=== PATIENT | male | born 1955 | race Caucasian/White ===

== ENCOUNTER 2020-04-10 09:06 | Day surgery (SDC) | payer MEDICARE, SELFPAY ==
--- NOTE | 2020-04-08 14:06 | P.CONAN_ITS ---
Documented by User: Trudi Thomas 04/08/20 14:08 HPI - Anesthesia Eval Consult details Narrative: 64yo M for EGD and colonoscopy: barretts, GERD, screening [facility] Past Medical History Medical History Barretts esophagus GERD (gastroesophageal reflux disease) Hiatal hernia Surgical History Surgical History History of esophagogastroduodenoscopy (EGD) Hx of colonoscopy Social History Social History Smoking Status: Light tobacco smoker Use of substances other than those prescribed or required for medical reasons: Yes Advance Directives: No Advance Directives Information Provided: Yes Advance Directives on File: No Meds Allergies Allergy/AdvReac Type Severity Reaction Status Date / Time latex [Latex] Allergy Mild RASH Unverified 03/12/20 16:51 Home Medications Medication Instructions Recorded Confirmed Type pantoprazole 1 tab PO DAILY 04/07/20 04/07/20 History Exam Exam Date and Time: April 08, 2020 1406 Pertinent Lab Results Pertinent Lab Results: Laboratory Tests 01/03/20 01/03/20 10:47 10:47 WBC 5.1 Hgb 13.0 L Hct 38.9 L Plt Count 219 D Sodium 140 Potassium 4.4 Chloride 104 BUN 11 Creatinine 1.17 Assessment and Plan Assessment Anesthesia Assessment: Chart Reviewed Documented by User: Maurisio Brewer 04/10/20 09:26 [facility] Past Medical History Medical History Barretts esophagus GERD (gastroesophageal reflux disease) Hiatal hernia Surgical History Surgical History History of esophagogastroduodenoscopy (EGD) Hx of colonoscopy Social History Social History Smoking Status: Light tobacco smoker Use of substances other than those prescribed or required for medical reasons: Yes Advance Directives: No Advance Directives Information Provided: Yes Advance Directives on File: No Meds Allergies Allergy/AdvReac Type Severity Reaction Status Date / Time latex [Latex] Allergy Mild RASH Unverified 03/12/20 16:51 Home Medications Medication Instructions Recorded Confirmed Type pantoprazole 1 tab PO DAILY 04/07/20 04/07/20 History Exam Airway Mallampati Class: II TM Dist: >3cm Neck ROM: Full Loose/Missing/Broken Teeth: No Heart: [id number] Lungs: cta b/l Assessment and Plan Assessment Anesthesia Assessment: Anesthesia Plan Discussed, PAT Visit and Chart Reviewed Final Anesthetic Review NPO: Yes ASA Class: II Final Preanesthetic Review: No Changes in Pt Med Stat, Meds/Allgs Chart Reviewed, Consent Obtained/Reviewed and Anes Risks/Benef Reviewed Patient Risk: Low Procedure Risk: Low Anesthetic Plan Anesthetic Plan: MAC: Disposition: Standard PACU
[2020-04-09 09:48] VITALS: BMI 21.6
[2020-04-10] VITALS (7 sets, daily range): BP systolic 113–187; BP diastolic 61–101; PULSE 60–78; RESP 14–21; TEMP 36.5–36.8; O2SAT 93–100
--- NOTE | 2020-04-10 10:47 | PM.OP ---
Brief Operative Note Date of procedure: 04/10/20 Pre-op diagnosis: GERD, Haque's, Screening Post-op diagnosis: other (Hiatal hernia, Gastritis, Diverticulosis, Internal hemorrhoidds) Procedure: EGD with biopsy, Colonoscopy to cecum and TI Surgeon: Bandar Fajardo Anesthesia: MAC Pathology: other (A. EG Junction at 36cm B. Gastric antrum) Condition: stable Disposition: PACU
[2020-04-10] MEDS: ondansetron HCL 4 MG/2 ML VIAL IVPUSH ×2 (11:28→12:56)
--- NOTE | 2020-04-10 11:35 | OP_ITS ---
SURGEON: Bandar Fajardo MD INDICATIONS: The patient presents for evaluation of gastroesophageal reflux, previous history of Haque's esophagus, and colorectal cancer screening. Full consent has been obtained from him for this, including risks of bleeding and perforation. PREOPERATIVE DIAGNOSIS: POSTOPERATIVE DIAGNOSIS: PROCEDURE PERFORMED: Esophagogastroduodenoscopy with biopsies, and colonoscopy to cecum and terminal ileum. ESTIMATED BLOOD LOSS: COMPLICATIONS: ANESTHESIA: Monitored anesthesia care. ASSISTANTS: SPECIMENS: PREOPERATIVE DIAGNOSES: Gastroesophageal reflux, history of Haque's esophagus, colorectal cancer screening. POSTOPERATIVE DIAGNOSES: Gastroesophageal reflux, history of Haque's esophagus, colorectal cancer screening, hiatal hernia, mild gastritis, diverticulosis, and internal hemorrhoids. DESCRIPTION OF PROCEDURE: The patient was placed in the left lateral decubitus position. The Olympus video gastroscope was passed in the posterior oropharynx and upper esophagus under direct vision. The scope was passed slowly into the distal esophagus. The gastroesophageal junction appeared at 36 cm. There was a very minimal irregularity, but no evidence of esophagitis nor any definitive evidence of Haque's mucosa. The scope was entered into the stomach. There was a small to moderate-sized hiatal hernia. The scope was advanced to pylorus and duodenum cannulated the descending portion. The duodenum including the bulb appeared normal without mass or ulceration. The scope was withdrawn back in the stomach. The gastric antrum had some mild changes of erythema and edema, but no erosions or ulceration. There was good peristalsis. The scope was retroflexed visualizing the proximal stomach carefully, which appeared normal, without any sign of mass or ulceration. The scope was straightened. Biopsies were obtained from the gastric antrum. Scope was withdrawn back into the esophagus. Biopsies were obtained at the EG junction at 36 cm. Proximal to this, the esophageal mucosa appeared normal. The scope was withdrawn from the patient. He was turned around for colonoscopy. The digital rectal exam revealed no abnormalities. The Olympus video pediatric colonoscope was entered into the rectum and advanced easily to the cecum. Once in the cecum, I did identify normal-appearing cecal pouch with appendiceal orifice and a normal-appearing ileocecal valve. The terminal ileum was cannulated and appeared normal. The scope was withdrawn back in the colon. The entire cecum and ileocecal valve appeared normal. The scope was slowly withdrawn assessing all mucosal surfaces carefully. Preparation was excellent. I did not visualize any sign of polyps, colitis, nor angiodysplasia. There was a mild amount of sigmoid diverticulosis. In the rectum, scope was retroflexed visualizing internal hemorrhoids, but no other pathology. The rectal mucosa appeared normal. The scope was straightened out and withdrawn from the patient. He tolerated both procedures well and was returned to the recovery area in stable condition. IMPRESSION: 1. Hiatal hernia, gastroesophageal reflux. 2. Mild gastritis. 3. Diverticulosis. 4. Internal hemorrhoids. PLAN: The results of the biopsy will be checked. I would recommend a repeat colonoscopy in 10 years for further screening. He will continue his pantoprazole for reflux. Given the very minimal findings on the upper endoscopy, I doubt he will need any further upper endoscopies for surveillance in the future. He will otherwise see me on a p.r.n. basis. MD ROSALEE Curiel/FRANCO / [id number]
--- NOTE | 2020-04-10 12:00 | ECG_ITS ---
Test Reason : ekg changes Blood Pressure : / mmHG Vent. Rate : 072 BPM Atrial Rate : 076 BPM P-R Int : 000 ms QRS Dur : 092 ms QT Int : 430 ms P-R-T Axes : 000 098 027 degrees QTc Int : 470 ms Poor data quality, interpretation may be adversely affected Atrial fibrillation Rightward axis Cannot rule out Inferior infarct , new Anterolateral injury pattern ACUTE MT / STEMI Abnormal ECG When compared with ECG of 03-DEC-2019 17:20, Atrial fibrillation has replaced Sinus rhythm Acute Inferior infarct is now Present Referred By: Maurisio Brewer Electronically Signed By:
[2020-04-10 12:05] LABS: Glucose, Whole Blood 105 mg/dL (60-115)
[2020-04-10 13:24] LABS: Glucose, Whole Blood 140 mg/dL (60-115)
== END 2020-04-10 12:50 | disposition home or self-care (01) ==
PROVIDERS: PCP Internal Medicine; Visit Provider Internal Medicine
PROC: (CPT 45378; principal; 2020-04-10 10:10)
DX: Z12.11 Encounter for screening for malignant neoplasm of colon (principal); K57.30 Diverticulosis of large intestine without perforation or abscess without bleeding; K64.8 Other hemorrhoids; K22.70 Barrett's esophagus without dysplasia; K29.70 Gastritis, unspecified, without bleeding; K21.00 Gastro-esophageal reflux disease with esophagitis, without bleeding; K44.9 Diaphragmatic hernia without obstruction or gangrene; Z79.899 Other long term (current) drug therapy; F12.90 Cannabis use, unspecified, uncomplicated; Z91.040 Latex allergy status
CPT/HCPCS: 45378; 43239; 74018; 82947; 88305; 88342; 93005; 96361; 96374; 96375; 99285; J1200; J2060; J2405; J2765

== ENCOUNTER 2020-04-10 13:26 | Emergency (ER) | payer MEDICARE, SELFPAY ==
[2020-04-10 13:32] VITALS: BP 153/70; PULSE 65; RESP 18; TEMP 36.7; O2SAT 100; BMI 21.6
--- NOTE | 2020-04-10 13:46 | ED_ITS ---
HPI - Nausea/Vomiting/Diarrhea General Chief complaint: Nausea/Vomiting/Diarrhea Stated complaint: Vomiting Time Seen by Provider: 04/10/20 13:40 Source: patient Mode of arrival: ambulatory Limitations: no limitations History of Present Illness HPI Narrative: 64-year-old male with a past medical history of GERD, marijuana use here with vomiting from PACU. The patient had a scheduled endoscopy and colonoscopy by Dr Fajardo here at [facility] and received propofol. Postprocedure he had vomiting and received 3 L of normal saline, IV Phenergan 12.5mg, IV zofran 8mg with continued vomiting. Denies abdominal pain, di arrhea. Reviewed OR note. uneventful procedure. MD elicited complaint: nausea and vomiting Onset (ago): hour(s) Associated nausea: Yes Associated abdominal pain: No Location of pain: none Pain consistency: constant Severity: mild Exacerbating factors: none Relieving factors: none Associated symptoms: denies other symptoms Related Data Home Medications Medication Instructions Recorded Confirmed pantoprazole 1 tab PO DAILY 04/07/20 04/07/20 Previous Rx's Medication Instructions Recorded ondansetron HCl [Zofran] 4 mg PO Q8H PRN #8 tab 04/10/20 Allergies Allergy/AdvReac Type Severity Reaction Status Date / Time latex [Latex] Allergy Mild RASH Verified 04/10/20 13:31 Review of Systems Review of Systems: Yes all other systems are reviewed and are negative Constitutional: Constitutional: Reports no additional constitutional complaints, Denies body ache(s), Denies chills, Denies fever(s), Denies headache(s) and Denies weakness Eyes: Eyes: Reports no additional eye complaints and Denies change in vision ENT: Reports system reviewed and no additional complaints, except as documented, Denies dizziness, Denies headache(s), Denies nasal congestion, Denies nasal discharge and Denies neck pain Cardiovascular: Cardiovascular: Reports no additional cardiovascular complaints, Denies chest pain, Denies leg edema and Denies dyspnea Respiratory: Respiratory: Reports no additional respiratory complaints, Denies cough and Denies dyspnea Gastrointestinal: Gastrointestinal: Denies abdominal pain, Denies diarrhea, Reports nausea and Reports vomiting Genitourinary: Genitourinary: Denies urinary incontinence Musculoskeletal: Musculoskeletal: Reports no additional musculoskeletal complaints, Denies back pain, Denies arthralgias, Denies joint swelling, Denies neck pain, Denies numbness and Denies tingling Integumentary/Breasts: Skin/Breast: Reports system reviewed and no additional complaints, except as docu and Denies rash Neurologic: Reports system reviewed and no additional complaints, except as documented, Denies Abnormal speech present, Denies dizziness, Denies headache(s), Denies numbness, Denies tingling and Denies weakness PMFSH Past Medical History Source: old records reviewed, obtained from family and nursing notes reviewed Medical History Barretts esophagus GERD (gastroesophageal reflux disease) Hiatal hernia Surgical History History of esophagogastroduodenoscopy (EGD) Hx of colonoscopy Social History Social History Alcohol intake: never Smoking Status: Light tobacco smoker Smoked in Last 30 Days: Yes Use of substances other than those prescribed or required for medical reasons: No Advance Directives: No Advance Directives Information Provided: Yes Physical Exam Vital Signs: Vital Signs: Vital Signs Temp Pulse Resp BP Pulse Ox 04/10/20 16:59 98 04/10/20 15:10 97.6 F 79 18 146/74 H 97 04/10/20 14:03 55 18 156/75 H 94 04/10/20 13:32 98.0 F 65 18 153/70 H 100 Body Mass Index 21.6 Const: Other: Very anxious, diaphoretic, actively dry heaving General: cooperative Orientation/consciousness: patient oriented x3 Limitations: no limitations HENMT: Head: Yes normal to inspection Ears: hearing grossly normal bilaterally General nose exam: Normal external nose present Face and sinus: Yes normal facial exam Mouth: Normal oral and palatal mucosa present Throat: Yes posterior oropharynx normal Eyes: General: appearance normal, both eyes and all related structures Pupils: Equal, round and reactive pupils present Neck: Neck: Yes normal visual inspection Chest: Chest palpation & inspection: normal inspection of the chest Resp: Effort & Inspection: normal respiratory effort Auscultation: clear to auscultation bilaterally Cardio: Rate: regular rate Rhythm: regular rhythm Peripheral pulses: Peripheral pulses 2+ throughout GI: Other: no abdominal pain. Abdomen is soft Inspection: Yes normal to inspection Palpation (GI): Soft to palpation and nontender Auscultation: normal bowel sounds Back/Spine/Pelvis: Thoracic/Lumbar Spine: thoracic and lumbar spine normal to inspection Skin: General skin exam: no rashes or lesions noted Neuro: General: patient oriented x3, no focal motor deficits and normal sensation to monofilament Cranial nerves: Yes Equal, round and reactive pupils present Cognition (Neuro): normal cognition Speech: No Abnormal speech present Gait exam (Neuro): Normal gait present Motor exam (neuro): 5/5 motor strength present throughout Extrem: General: Yes normal to inspection Course Course Course Narrative: patient here with intractable vomiting after a outpatient procedure today in which he received propofo and several rounds of antiemeticl. On exam he is very anxious, diaphoretic, actively dry heaving with no focal abdominal pain. Will give antiemetic check KUB. Patient may need admission he continues to vomit. 1520-Continued vomiting despite 3 antiemetics here, will give haldol IV and discuss with hospitalist is no improvement. 1615- patient called me to the room and wants to be discharged home. He walked to the bathroom with a steady gait. He is able to tolerate fluids with no vomiting. Has a ride to pick him up. Reviewed worrisome signs and symptoms of when to return to the emergency department. Comfortable discharge home. MDM - Nausea/Vomiting/Diarrhea MDM Narrative Medical decision making narrative: Intractable vomiting after receiving anesthesia today. Abdomen is soft and nontender. KUB unremarkable. Less likely perf or intrabdominal pathology with soft, nontender abdomen, stable vital signs. Imaging Data Abdominal x-ray: Attestation: I personally reviewed and interpreted this imaging study as follows: My impression: unremarkable Radiologist's impression: EXAMINATION: XR ABDOMEN KUB CLINICAL INDICATION: Post procedure vomiting. COMPARISON: January 08, 2019 TECHNIQUE: AP view of the abdomen. FINDINGS: There is a gas collection measuring approximately 8 cm in diameter within the mid right abdomen which may represent a distended loop of bowel folded back on itself. No other dilated loops of bowel are appreciated. No secondary signs of free abdominal air seen. Psoas margins are intact. There is degenerative change of the lumbar spine L4-S1 prominent vascular calcifications are present. IMPRESSION: No definite evidence of free intra-abdominal air. Region of circumscribed gas within the mid right abdomen likely related to distended loop of bowel folded on itself. Discharge Plan Discharge Clinical Impression: Drug-induced nausea and vomiting Patient Disposition: Home, Self-Care Instructions: Acute Nausea and Vomiting (ED) Prescriptions: New ondansetron HCl [Zofran] 4 mg tablet 4 mg PO Q8H PRN (Reason: nausea and vomiting) Qty: 8 RF: 0 No Action pantoprazole 40 mg tablet,delayed release (DR/EC) 1 tab PO DAILY RF: 0 Referrals: Physician,Unknown [Primary Care Provider] - 2 days
[2020-04-10] MEDS: 0.9 % Sodium Chloride 500 ML 100 ML IV (13:50)
[2020-04-10] MEDS: LORazepam 2 MG/ML VIAL 1 MG IVPUSH (13:52)
[2020-04-10] MEDS: diphenhydrAMINE HCL 50 MG/ML VIAL 25 MG IVPUSH (13:53)
[2020-04-10] MEDS: Metoclopramide HCl 10 MG/2 ML VIAL IVPUSH (13:53)
--- NOTE | 2020-04-10 14:02 | PC.NURSE ---
stopped vomiting. no longer diaphoretic. is somewhat difficult to arouse now but only needs light touch. pupils 4mm, reactive. able to follow commands once aroused. vss
[2020-04-10 14:03] VITALS: BP 156/75; PULSE 55; RESP 18; O2SAT 94
--- NOTE | 2020-04-10 14:34 | PC.NURSE ---
son, annalee , is ride home. [phone] update given
[2020-04-10 15:10] VITALS: BP 146/74; PULSE 79; RESP 18; TEMP 36.4; O2SAT 97
[2020-04-10] MEDS: Haloperidol Lactate 5 MG/ML VIAL 2 MG IVPUSH (15:18)
--- NOTE | 2020-04-10 15:18 | PC.NURSE ---
vomited again x 2. cleansed. repositioned. aware of plan for admission. medicated with haldol for persistent vomiting.
--- NOTE | 2020-04-10 16:17 | PC.NURSE ---
This patient is refusing all labs, vitals and any sort of care. He is also refusing to wear his mask. He would like to leave AMA. provider Jocelyn MAXWELL aware. RN also aware.
[2020-04-10 16:59] VITALS: O2SAT 98
--- NOTE | 2020-04-10 17:03 | PC.NURSE ---
pt was ambulatrot rto bathroom, mostly steady on feet. insists on going home. hasn't vomited in a while. was able to dress independently.. son aware and will come warehouse picker patient
== END 2020-04-10 17:41 | disposition home or self-care (01) ==
PROVIDERS: Emergency Provider Emergency Medicine
DX: F12.188 Cannabis abuse with other cannabis-induced disorder (principal); R11.2 Nausea with vomiting, unspecified; F17.200 Nicotine dependence, unspecified, uncomplicated; Z71.6 Tobacco abuse counseling; Z79.899 Other long term (current) drug therapy
CPT/HCPCS: 74018; 82947; 88305; 88342; 93005; 96361; 96374; 96375; 99285; J1200; J2060; J2405; J2765

== ENCOUNTER 2020-06-19 09:02 | Emergency (ER) | payer MEDICARE, SELFPAY ==
[2020-06-19 09:21] VITALS: BP 144/74; PULSE 68; RESP 22; TEMP 36.3; O2SAT 99; BMI 23.3
--- NOTE | 2020-06-19 09:48 | ED_ITS ---
HPI - Nausea/Vomiting/Diarrhea General Chief complaint: Abdominal Pain Stated complaint: abd pain Time Seen by Provider: 06/19/20 11:41 Source: patient Mode of arrival: ambulatory Limitations: no limitations History of Present Illness HPI Narrative: Patient presents to ED for severe nausea and vomiting since 10/23 this morning. Patient denies any abdominal pain. ALso patient denies any chest pain or shortness of breath. Patient states this has happened before in the past when he smokes pot. Patient admits to smoking pot last night. Associated nausea: Yes Related Data Home Medications Medication Instructions Recorded Confirmed pantoprazole 1 tab PO DAILY 04/07/20 04/07/20 Previous Rx's Medication Instructions Recorded ondansetron HCl [Zofran] 4 mg PO Q8H PRN #8 tab 04/10/20 Allergies Allergy/AdvReac Type Severity Reaction Status Date / Time latex [Latex] Allergy Mild RASH Verified 04/10/20 13:31 Review of Systems Review of Systems: Yes all other systems are reviewed and are negative Constitutional: Constitutional: Reports as per HPI and Reports no additional constitutional complaints Eyes: Eyes: Reports as per HPI and Reports no additional eye complaints ENT: Reports system reviewed and no additional complaints, except as documented and Reports as per HPI Cardiovascular: Cardiovascular: Reports as per HPI and Reports no additional cardiovascular complaints Respiratory: Respiratory: Reports as per HPI and Reports no additional respiratory complaints Gastrointestinal: Gastrointestinal: Reports as per HPI, Reports no additional gastrointestinal complaints, Denies abdominal pain, Reports nausea and Reports vomiting Genitourinary: Genitourinary: Reports no additional male genitourinary compla ints and Reports as per HPI Musculoskeletal: Musculoskeletal: Reports no additional musculoskeletal complaints and Reports as per HPI Neurologic: Reports system reviewed and no additional complaints, except as documented and Reports as per HPI Psychiatric: Psychiatric: Reports no additional psychiatric complaints and Reports as per HPI Endocrine: Endocrine: Reports no additional endocrine complaints and Reports as per HPI PMFSH Past Medical History Medical History Barretts esophagus GERD (gastroesophageal reflux disease) Hiatal hernia Surgical History History of esophagogastroduodenoscopy (EGD) Hx of colonoscopy Social History Social History Alcohol intake: unknown Smoking Status: Unknown if ever smoked Use of substances other than those prescribed or required for medical reasons: Yes Substance Use Type: Marijuana Advance Directives: No Advance Directives Information Provided: Yes Physical Exam Vital Signs: Vital Signs: Last Vital Signs Temp 98.0 F 06/19/20 13:00 Pulse 68 06/19/20 13:00 Resp 18 06/19/20 13:00 BP 172/87 H 06/19/20 13:00 Pulse Ox 98 06/19/20 13:00 Body Mass Index 23.3 Const: General: cooperative, healthy appearing, comfortable, no acute distress, well developed, alert and awake Orientation/consciousness: patient oriented x3 HENMT: Head: Yes normal to inspection, Yes No palpable skull fracture present and Yes normocephalic Eyes: General: appearance normal, both eyes and all related structures Neck: Neck: Yes normal visual inspection, Yes full ROM, Yes no lymphadenopathy, Yes no meningeal signs, Yes trachea midline, Yes supple and No tender Chest: Chest palpation & inspection: normal inspection of the chest and normal palpation of entire chest wall Resp: Effort & Inspection: normal respiratory effort and able to speak in complete sentences Auscultation: clear to auscultation bilaterally Cardio: Jugular venous distension: no JVD Heart sounds: S1 normal heart sound present and S2 normal heart sound present GI: Inspection: Yes normal to inspection and No abdominal wall ecchymosis Palpation (GI): Soft to palpation, not firm, nontender, no guarding and not rigid : General: No CVA tenderness and Yes no CVA tenderness Back/Spine/Pelvis: Back: no CVA tenderness, No CVA tenderness and No back ten derness Skin: General skin exam: no rashes or lesions noted and elasticity normal Neuro: General: patient oriented x3, gait normal, no meningeal signs and CN's II-XI intact bilaterally Cranial nerves: Yes CN's II-XII intact bilaterally Extrem: General: Yes normal to inspection and Yes full ROM Psych: Appearance: grossly normal, well kempt and not disheveled Course Course Course Narrative: Patient denies any abdominal pain patient states this vomiting. Most likely this is marijuana induced vomiting patient admits to history of cyclic vomitting due to marijuana. Due to age he will get baseline EKG and troponin make sure it is not cardiac event. We will do basic labs and give Zofran, Benadryl, and IV fluids. Reevaluation(s) Reevaluation #1: lot technician went to do EKG on patient and patient refused EKG. Patient was rude to staff and did not want EKG done. Patient's explain EKG necessary to make sure there is no signs of heart attack, but patient still refused. Patient known to ED staff as coming to the ER and not being compliant and cooperative with care. If patient does not get EKG he will be discharged as against medical advice. Time: 11:08 Reevaluation #2: Patient still refused to have EKG done. Patient still having nausea. Patient given Haldol. Patient now sleeping comfortably and not having any nausea vomiting. Once again symptoms are due to marijuana. Time: 12:49 Reevaluation #3: Patient to sign out against medical advice. Patient pulled out the IV. Patient has refused for EKG to be done. Patient's explained risk of , disability, and Myocardial Infarction. patient also refused repeat Chemistry to see if anion gap and C0 improved after receiving fluids.. Time: 13:23 MDM - Nausea/Vomiting/Diarrhea MDM Narrative Medical decision making narrative: Marijuana induced vomiting Lab Data Result diagrams: 06/19/20 09:59 06/19/20 10:00 Labs: Lab Results 06/19/20 06/19/20 06/19/20 Range/Units 09:59 09:59 10:00 WBC 10.2 (4.8-10.8) X10*3/uL RBC 4.75 (4.60-5.80) X10*6/uL Hgb 14.7 (14.0-18.0) g/dl Hct 43.1 (42-52) % MCV 90.7 (80-98) fL MCH 30.9 (27.0-33.0) pg MCHC 34.1 (31.0-36.0) g/dl RDW 12.0 (11.0-16.0) % Plt Count 248 (160-400) X10*3/uL MPV 11.2 (9.4-12.4) fL Immature Gran % (Auto) 0.4 (0.0-0.4) % Neut % (Auto) 76.3 H (45-73) % Lymph % (Auto) 13.8 L (20-40) % Angelina % (Auto) 6.8 (2-11) % Eos % (Auto) 2.2 (0-4) % Baso % (Auto) 0.5 (0-2) % Lymph # (Auto) 1.4 (1.2-4.9) X10*3/uL Angelina # (Auto) 0.7 (0.1-1.2) X10*3/uL Eos # (Auto) 0.2 (0.0-0.4) X10*3/uL Baso # (Auto) 0.1 (0.0-0.2) X10*3/uL Abs Immat Gran (auto) 0.04 H (0.00-0.03) X10*3/uL Absolute Neuts (auto) 7.8 (2.0-8.3) X10*3/uL Absolute Nucleated RBC 0.000 (0.0-0.012) X10*3/uL Nucleated RBC % (auto) 0.0 (0.0-0.2) /100WBC PT Cancelled INR Cancelled APTT Cancelled Sodium 141 (135-145) mmol/L Potassium 4.5 (3.3-5.1) mmol/l Chloride 104 (96-108) mmol/L Carbon Dioxide 20 L (22-29) mmol/L Anion Gap 22 H (12-20) BUN 15 (9-16) mg/dL Creatinine 1.40 (0.5-1.4) mg/dL Estim Creat Clear Calc 45.1 Estimated GFR 51 Random Glucose 150 H (60-115) mg/dL Calcium 9.8 (8.4-10.2) mg/dL Total Bilirubin 0.7 (0.0-1.0) mg/dL Direct Bilirubin 0.3 (0.0-0.5) mg/dL AST 23 (5-37) U/L ALT 19 (0-40) U/L Alkaline Phosphatase 61 (39-117) U/L Troponin I High Sens (<3.5-35.0) ng/L Total Protein 7.8 (6.5-8.0) g/dL Albumin 4.7 (3.5-5.0) g/dL Lipase 27 (8-78) U/L Urine Color Urine Appearance Urine pH (5.0-8.0) Ur Specific [place] (1.005-1.025) Urine Protein (NEG-TRACE) MG/DL Urine Glucose (UA) (NEG) MG/DL Urine Ketones (NEG) MG/DL Urine Blood (NEG) Urine Nitrite (NEG) Ur Leukocyte Esterase (NEG) 06/19/20 06/19/20 Range/Units 10:00 11:38 WBC (4.8-10.8) X10*3/uL RBC (4.60-5.80) X10*6/uL Hgb (14.0-18.0) g/dl Hct (42-52) % MCV (80-98) fL MCH (27.0-33.0) pg MCHC (31.0-36.0) g/dl RDW (11.0-16.0) % Plt Count (160-400) X10*3/uL MPV (9.4-12.4) fL Immature Gran % (Auto) (0.0-0.4) % Neut % (Auto) (45-73) % Lymph % (Auto) (20-40) % Angelina % (Auto) (2-11) % Eos % (Auto) (0-4) % Baso % (Auto) (0-2) % Lymph # (Auto) (1.2-4.9) X10*3/uL Angelina # (Auto) (0.1-1.2) X10*3/uL Eos # (Auto) (0.0-0.4) X10*3/uL Baso # (Auto) (0.0-0.2) X10*3/uL Abs Immat Gran (auto) (0.00-0.03) X10*3/uL Absolute Neuts (auto) (2.0-8.3) X10*3/uL Absolute Nucleated RBC (0.0-0.012) X10*3/uL Nucleated RBC % (auto) (0.0-0.2) /100WBC PT INR APTT Sodium (135-145) mmol/L Potassium (3.3-5.1) mmol/l Chloride (96-108) mmol/L Carbon Dioxide (22-29) mmol/L Anion Gap (12-20) BUN (9-16) mg/dL Creatinine (0.5-1.4) mg/dL Estim Creat Clear Calc Estimated GFR Random Glucose (60-115) mg/dL Calcium (8.4-10.2) mg/dL Total Bilirubin (0.0-1.0) mg/dL Direct Bilirubin (0.0-0.5) mg/dL AST (5-37) U/L ALT (0-40) U/L Alkaline Phosphatase (39-117) U/L Troponin I High Sens < 3.5 (<3.5-35.0) ng/L Total Protein (6.5-8.0) g/dL Albumin (3.5-5.0) g/dL Lipase (8-78) U/L Urine Color YELLOW Urine Appearance CLEAR Urine pH 8.5 H (5.0-8.0) Ur Specific [place] 1.020 (1.005-1.025) Urine Protein NEG (NEG-TRACE) MG/DL Urine Glucose (UA) NEG (NEG) MG/DL Urine Ketones 5 (NEG) MG/DL Urine Blood NEG (NEG) Urine Nitrite NEG (NEG) Ur Leukocyte Esterase NEG (NEG) Discharge Plan Discharge Clinical Impression: Cyclic vomiting syndrome Patient Disposition: Left Against Medical Advice Instructions: Cyclic Vomiting Syndrome (ED) Additional Instructions: Return to the ED for any worsening abdominal pain, nausea, vomiting, fever, chills, dysuria, hematuria, chest pain, shortness of breath, or any other concerning symptoms. Prescriptions: No Action pantoprazole 40 mg tablet,delayed release (DR/EC) 1 tab PO DAILY RF: 0 ondansetron HCl [Zofran] 4 mg tablet 4 mg PO Q8H PRN (Reason: nausea and vomiting) Qty: 8 RF: 0 Referrals: Jah Cheung MD [Primary Care Provider] - 2 days (Cyclic vomiting) Stand Alone Forms: Against Medical Advice Interventions: ED Discharge Assessment Last Done: 06/19/20 13:29 Discharge Date/Time: 06/19/20 13:32 Print Language: Tamazight
[2020-06-19] MEDS: 0.9 % Sodium Chloride 1,000 ML 999 ML IV (09:57)
[2020-06-19] MEDS: ondansetron HCL 4 MG/2 ML VIAL IVPUSH (09:57)
[2020-06-19] MEDS: diphenhydrAMINE HCL 50 MG/ML VIAL IVPUSH (09:57)
[2020-06-19 10:00] VITALS: BP 172/87; PULSE 65; RESP 20; TEMP 37.1; O2SAT 100
[2020-06-19 10:05] LABS: Basophils Absolute Auto 0.1 X10*3/uL (0.0-0.2); Basophils Percent Auto 0.5 % (0-2); Eosinophils Absolute Auto 0.2 X10*3/uL (0.0-0.4); Eosinophils Percent Auto 2.2 % (0-4); Hematocrit 43.1 % (42-52); Hemoglobin 14.7 g/dl (14.0-18.0); Imm Gran Abs Auto 0.04 X10*3/uL (0.00-0.03); Imm Gran Pct Auto 0.4 % (0.0-0.4); Lymphocytes Absolute Auto 1.4 X10*3/uL (1.2-4.9); Lymphocytes Percent Auto 13.8 % (20-40); MANUAL DIFF FLAG NO; Mean Corpuscular HGB Conc 34.1 g/dl (31.0-36.0); Mean Corpuscular Hemoglobin 30.9 pg (27.0-33.0); Mean Corpuscular Volume 90.7 fL (80-98); Mean Platelet Volume 11.2 fL (9.4-12.4); Monocytes Absolute Auto 0.7 X10*3/uL (0.1-1.2); Monocytes Percent Auto 6.8 % (2-11); Neutrophils Absolute Auto 7.8 X10*3/uL (2.0-8.3); Neutrophils Percent Auto 76.3 % (45-73); Platelet Count 248 X10*3/uL (160-400); Red Blood Count 4.75 X10*6/uL (4.60-5.80); White Blood Count 10.2 X10*3/uL (4.8-10.8)
[2020-06-19 10:39] LABS: Troponin-I High Sensitivity < 3.5 ng/L (<3.5-35.0)
[2020-06-19 11:03] LABS: Alanine Aminotransferase 19 U/L (0-40); Albumin Level 4.7 g/dL (3.5-5.0); Alkaline Phosphatase 61 U/L (39-117); Anion Gap 22 (12-20); Aspartate Amino Transferase 23 U/L (5-37); Bilirubin Direct 0.3 mg/dL (0.0-0.5); Bilirubin Total 0.7 mg/dL (0.0-1.0); Blood Urea Nitrogen 15 mg/dL (9-16); Calcium 9.8 mg/dL (8.4-10.2); Carbon Dioxide 20 mmol/L (22-29); Chloride 104 mmol/L (96-108); Creatinine Clr Calc Pharmacy 45.1; Estimated Glomerular Filt Rate 51; Glucose Random 150 mg/dL (60-115); Lipase 27 U/L (8-78); Potassium 4.5 mmol/l (3.3-5.1); Sodium 141 mmol/L (135-145); Total Protein 7.8 g/dL (6.5-8.0)
[2020-06-19] MEDS: Haloperidol Lactate 5 MG/ML VIAL IM (11:50)
[2020-06-19 11:52] LABS: Glucose Urine UA NEG (NEG); Leukocyte Esterase Urine NEG (NEG); Nitrite Urine NEG (NEG); PH 8.5 (5.0-8.0); Urine Blood NEG (NEG); Urine Ketones 5 MG/DL (NEG); Urine Protein NEG (NEG-TRACE)
[2020-06-19 11:55] LABS: Appearance Urine CLEAR; Color Urine YELLOW
--- NOTE | 2020-06-19 11:55 | PC.NURSE ---
patient refused ekg, pt standing at side of the bed moaning and stating over and over, help me, please help me , patient c/o abd pain and ongoing severe nausea not relieved with medication previously given to him. pt requesting tissue, something to drink as well as a warm blanket. provider was notified of patients pain and nausea, new order of haldol was given, pt was given warm blanket and tissue- drink was held at this time and patient was notified as to reason.
--- NOTE | 2020-06-19 12:32 | PC.NURSE ---
patient is currently sleeping, rr 18, will continue to monitor
[2020-06-19 13:00] VITALS: BP 172/87; PULSE 68; RESP 18; TEMP 36.7; O2SAT 98
--- NOTE | 2020-06-19 13:10 | PC.NURSE ---
patient pulled out iv on his own, gauze applied, provider notified
== END 2020-06-19 13:32 | disposition left against medical advice (07) ==
PROVIDERS: Physician Assistant; Emergency Provider Emergency Medicine Emergency Medical Services; PCP Internal Medicine
DX: R11.15 Cyclical vomiting syndrome unrelated to migraine (principal); R10.9 Unspecified abdominal pain; F12.90 Cannabis use, unspecified, uncomplicated; Z79.899 Other long term (current) drug therapy
CPT/HCPCS: 36415; 80053; 80076; 81003; 82248; 83690; 84484; 85025; 96361; 96372; 96374; 96375; 99284; J1200; J2405

== ENCOUNTER 2021-11-19 09:07 | Outpatient (REF) | payer MEDICARE, OTHER, SELFPAY ==
[2021-11-19 09:26] LABS: MANUAL DIFF FLAG NO
[2021-11-19 10:12] LABS: Basophils Absolute Auto 0.1 X10*3/uL (0.0-0.2); Basophils Percent Auto 1.3 % (0-2); Eosinophils Absolute Auto 0.3 X10*3/uL (0.0-0.4); Eosinophils Percent Auto 6.1 % (0-4); Hematocrit 40.8 % (42.0-52.0); Hemoglobin 13.6 g/dl (14.0-18.0); Imm Gran Abs Auto 0.01 X10*3/uL (0.00-0.03); Imm Gran Pct Auto 0.2 % (0.0-0.4); Lymphocytes Absolute Auto 1.6 X10*3/uL (1.2-4.9); Lymphocytes Percent Auto 27.9 % (20-40); Mean Corpuscular HGB Conc 33.3 g/dl (31.0-36.0); Mean Corpuscular Hemoglobin 30.8 pg (27.0-33.0); Mean Corpuscular Volume 92.3 fL (80.0-98.0); Mean Platelet Volume 11.2 fL (9.4-12.4); Monocytes Absolute Auto 0.6 X10*3/uL (0.1-1.2); Monocytes Percent Auto 10.6 % (2-11); Neutrophils Percent Auto 53.9 % (45-73); Platelet Count 231 X10*3/uL (160-400); Red Blood Count 4.42 X10*6/uL (4.60-5.80); Red Cell Distribution Width 12.3 % (11.0-16.0); White Blood Count 5.6 X10*3/uL (4.8-10.8)
[2021-11-19 10:37] LABS: Appearance Urine CLEAR; Color Urine YELLOW; Glucose Urine UA NEG (NEG); Leukocyte Esterase Urine NEG (NEG); Nitrite Urine NEG (NEG); PH 6.5 (5.0-8.0); Specific Gravity - Urine <= 1.005 (1.005-1.025); Urine Blood NEG (NEG); Urine Ketones NEG (NEG); Urine Protein NEG (NEG-TRACE)
[2021-11-19 11:01] LABS: Alanine Aminotransferase 18 U/L (0-40); Albumin Level 4.5 g/dL (3.5-5.0); Alkaline Phosphatase 51 U/L (39-117); Anion Gap 14 (12-20); Aspartate Amino Transferase 21 U/L (5-37); Bilirubin Total 0.6 mg/dL (0.0-1.0); Blood Urea Nitrogen 15 mg/dL (9-16); Calcium 9.9 mg/dL (8.4-10.2); Carbon Dioxide 26 mmol/L (22-29); Chloride 106 mmol/L (96-108); Cholesterol 235 mg/dL; Estimated Glomerular Filt Rate 50; Glucose Fasting 116 mg/dL (60-99); HDL Cholesterol 64 mg/dL; LDL Cholesterol Calculated 154 mg/dl; Sodium 141 mmol/L (135-145); Total Protein 7.4 g/dL (6.5-8.0); Triglycerides 88 mg/dL
[2021-11-19 11:12] LABS: Prostate Specific Antigen 0.58 ng/mL (<0.05-4.0); Vitamin D 25-OH Total 13.9 ng/mL (>30)
== END 2021-11-19 09:08 | disposition home or self-care (01) ==
LOC: HO.LAB 09:07
PROVIDERS: PCP Internal Medicine; Visit Provider Internal Medicine
DX: Z00.00 Encounter for general adult medical examination without abnormal findings (principal); Z12.5 Encounter for screening for malignant neoplasm of prostate
CPT/HCPCS: 36415; 80053; 80061; 81003; 82306; 84153; 85025

== ENCOUNTER 2022-02-22 11:17 | Outpatient (REF) | payer MEDICARE, OTHER, SELFPAY ==
--- NOTE | ~2022-02-22 | XR_ITS ---
EXAMINATION: XR CHEST CLINICAL INFORMATION: COPD. Weight loss. Rule out lesion. COMPARISON: 02/02/2018 TECHNIQUE: 2 views of the chest were obtained. FINDINGS: Hyperexpanded lungs. No consolidation, edema, or effusion. No pneumothorax. The cardiomediastinal silhouette is within normal limits. Mild degenerative changes of the spine. XR/XR chest 2V IMPRESSION: Hyperexpanded, clear lungs.
[2022-02-22 13:46] LABS: MANUAL DIFF FLAG NO
[2022-02-22 13:50] LABS: Basophils Absolute Auto 0.1 X10*3/uL (0.0-0.2); Basophils Percent Auto 1.4 % (0-2); Eosinophils Absolute Auto 0.4 X10*3/uL (0.0-0.4); Eosinophils Percent Auto 7.4 % (0-4); Hematocrit 42.1 % (42.0-52.0); Hemoglobin 13.9 g/dl (14.0-18.0); Imm Gran Abs Auto 0.01 X10*3/uL (0.00-0.03); Imm Gran Pct Auto 0.2 % (0.0-0.4); Lymphocytes Absolute Auto 1.8 X10*3/uL (1.2-4.9); Lymphocytes Percent Auto 30.9 % (20-40); Mean Corpuscular Hemoglobin 30.7 pg (27.0-33.0); Mean Corpuscular Volume 92.9 fL (80.0-98.0); Mean Platelet Volume 11.9 fL (9.4-12.4); Monocytes Absolute Auto 0.6 X10*3/uL (0.1-1.2); Neutrophils Absolute Auto 2.9 x10*3/uL (2.0-8.3); Neutrophils Percent Auto 49.1 % (45-73); Platelet Count 221 X10*3/uL (160-400); Red Blood Count 4.53 X10*6/uL (4.60-5.80); White Blood Count 5.8 X10*3/uL (4.8-10.8)
[2022-02-22 14:02] LABS: Estimated Average Glucose 114 mg/dL; Hemoglobin A1c % 5.6 %
[2022-02-22 14:24] LABS: Alanine Aminotransferase 13 U/L (0-40); Albumin Level 4.6 g/dL (3.5-5.0); Alkaline Phosphatase 51 U/L (39-117); Anion Gap 19 (12-20); Aspartate Amino Transferase 20 U/L (5-37); Bilirubin Total 0.5 mg/dL (0.0-1.0); Blood Urea Nitrogen 16 mg/dL (9-16); C Reactive Protein 0.05 mg/dL (< or = 0.50); Calcium 9.4 mg/dL (8.4-10.2); Carbon Dioxide 23 mmol/L (22-29); Chloride 104 mmol/L (96-108); Estimated Glomerular Filt Rate 53; Glucose Random 92 mg/dL (60-115); Potassium 4.6 mmol/L (3.3-5.1); Sodium 141 mmol/L (135-145); Total Protein 7.6 g/dL (6.5-8.0)
== END 2022-02-22 11:18 | disposition home or self-care (01) ==
LOC: HO.10HDL 11:17
PROVIDERS: Visit Provider Internal Medicine
DX: R63.4 Abnormal weight loss (principal); R73.03 Prediabetes; J44.9 Chronic obstructive pulmonary disease, unspecified; N40.0 Benign prostatic hyperplasia without lower urinary tract symptoms
CPT/HCPCS: 36415; 71046; 80053; 83036; 85025; 86140

== ENCOUNTER 2024-04-02 07:03 | Outpatient (REF) | payer MEDICARE, SELFPAY ==
[2024-04-02 07:21] LABS: MANUAL DIFF FLAG NO
[2024-04-02 07:37] LABS: Basophils Absolute Auto 0.1 X10*3/uL (0.0-0.2); Basophils Percent Auto 1.5 % (0-2); Eosinophils Absolute Auto 0.9 X10*3/uL (0.0-0.4); Eosinophils Percent Auto 15.5 % (0-4); Hematocrit 41.8 % (42.0-52.0); Hemoglobin 14.1 g/dl (14.0-18.0); Imm Gran Abs Auto 0.01 X10*3/uL (0.00-0.03); Imm Gran Pct Auto 0.2 % (0.0-0.4); Lymphocytes Absolute Auto 1.7 X10*3/uL (1.2-4.9); Lymphocytes Percent Auto 28.4 % (20-40); Mean Corpuscular HGB Conc 33.7 g/dl (31.0-36.0); Mean Corpuscular Hemoglobin 31.1 pg (27.0-33.0); Mean Corpuscular Volume 92.1 fL (80.0-98.0); Mean Platelet Volume 10.8 fL (9.4-12.4); Monocytes Absolute Auto 0.7 X10*3/uL (0.1-1.2); Monocytes Percent Auto 11.1 % (2-11); Neutrophils Absolute Auto 2.6 x10*3/uL (2.0-8.3); Neutrophils Percent Auto 43.3 % (45-73); Platelet Count 223 X10*3/uL (160-400); Red Blood Count 4.54 X10*6/uL (4.60-5.80); Red Cell Distribution Width 12.3 % (11.0-16.0)
[2024-04-02 07:38] LABS: Appearance Urine Clear; Color Urine Yellow; Glucose Urine UA Negative (Negative); Leukocyte Esterase Urine Negative (Negative); Nitrite Urine Negative (Negative); Specific Gravity - Urine 1.015 (1.005-1.025); Urine Blood Negative (Negative); Urine Ketones Negative (Negative); Urine Protein Negative (Neg-Trace)
[2024-04-02 08:14] LABS: Alanine Aminotransferase 16 U/L (0-40); Albumin Level 4.4 g/dL (3.5-5.0); Alkaline Phosphatase 55 U/L (39-117); Anion Gap 14 (12-20); Aspartate Amino Transferase 19 U/L (5-37); Bilirubin Total 0.5 mg/dL (0.0-1.0); Blood Urea Nitrogen 16 mg/dL (9-16); Calcium 9.7 mg/dL (8.4-10.2); Carbon Dioxide 28 mmol/L (22-29); Chloride 109 mmol/L (96-108); Cholesterol 231 mg/dL (<200); Estimated Glomerular Filt Rate 44; Glucose Fasting 110 mg/dL (60-99); HDL Cholesterol 70 mg/dL (>40); LDL Cholesterol Calculated 140 mg/dL (<100); Potassium 4.8 mmol/L (3.3-5.1); Sodium 146 mmol/L (135-145); Total Protein 7.4 g/dL (6.5-8.0); Triglycerides 109 mg/dL (<150)
[2024-04-02 08:29] LABS: Thyroid Stimulating Hormone 2.91 uIU/mL (0.32-4.0)
[2024-04-02 08:37] LABS: Prostate Specific Antigen 0.76 ng/mL (<0.05-4.0); Vitamin B12 337 pg/mL (200-900)
== END 2024-04-02 07:04 | disposition home or self-care (01) ==
LOC: HO.LAB 07:03
PROVIDERS: PCP Internal Medicine; Visit Provider Internal Medicine
DX: E78.00 Pure hypercholesterolemia, unspecified (principal); K21.9 Gastro-esophageal reflux disease without esophagitis; N40.0 Benign prostatic hyperplasia without lower urinary tract symptoms; N18.9 Chronic kidney disease, unspecified; E55.9 Vitamin D deficiency, unspecified; Z12.5 Encounter for screening for malignant neoplasm of prostate
CPT/HCPCS: 36415; 80053; 80061; 81003; 82306; 82607; 84153; 84443; 85025

== ENCOUNTER → 2024-10-07 15:38 | Outpatient (AMB) | payer MEDICARE, SELFPAY ==
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
[2024-10-07 16:29] VITALS: BP 118/70; PULSE 61; TEMP 36.3; O2SAT 98; BMI 21.0
--- OUTSIDE RECORDS SUMMARY | 2024-10-07 18:02 | XMS_ITS | Clinical Summary ---
Author Organization [facility] ity Address [address] [place] [address] Care Team Providers Care Slimer Name Role Phone Unavailable Primary Care Provider Unavailabl e Social History Tobacco Use Types Packs/Day Years Used Date Smoking Tobacco: Never Assessed Sex and Gender Information Value Date Recorded Sex Assigned at Not on file Legal Sex Male 4:09 PM EST Gender Identity Not on file Sexual Orientation Not on file Plan of Treatment Health Maintenance Due Date Last Done Comments DTaP,Tdap,and Td Vaccines (1 - Tdap) 1974 Pneumococcal Vaccine: 50+ Ye ars (1 of 1 - PCV) 11/18/2003 Zoster Vaccines (1 of 2) 11/18/2003 Abdominal Aortic Aneurysm (A AA) Screen 05/25/2022 Cholesterol Screening (Lipid Panel) 05/25/2022 Colorectal Cancer Screening: Colonoscopy 05/25/2022 Depression Screening 05/25/2022 Falls Risk Assessment 05/25/2022 Hepatitis C Screening 05/25/2022 Social Influencers of Health Screening 05/25/2022 COVID-19 Vaccine ( - 2023-2 5 season) 2024 Influenza Vaccine (Season Ended) 2025 RSV Immunization Adult Patie nts (1 - 1-dose 75+ series) 2028 HIB Vaccines Aged Out No longer eligi ble based on patient's age to complete this topic HPV Vaccines Aged Out No longer eligi ble based on patient's age to complete this topic Hepatitis A Vaccines Aged Out No long er eligible based on patient's age to complete this topic Hepatitis B Vaccines Aged Out No long er eligible based on patient's age to complete this topic IPV Vaccines Aged Out No longer eligi ble based on patient's age to complete this topic MMR Vaccines Aged Out No longer eligi ble based on patient's age to complete this topic Meningococcal ACWY Vaccine Aged Out N o longer eligible based on patient's age to complete this topic Meningococcal B Vaccine Aged Out No l onger eligible based on patient's age to complete this topic RSV Immunization Patients Un nohemy 20 months Aged Out No longer eligible b ased on patient's age to complete this topic Varicella Vaccines Aged Out No longer eligible based on patient's age to complete this topic Advance Directives Documents on File Type Date Recorded Patient Agent Contract Clerk Expl anation Health Care Decision (hx) 09/25/2019 AD WEST DIRECTIVE Health Care Decision (hx) 09/25/2019 AD WEST DIRECTIVE Health Care Decision (hx) 09/25/2019 AD WEST DIRECTIVE Health Care Decision (hx) 09/25/2019 AD WEST DIRECTIVE
--- OUTSIDE RECORDS SUMMARY | 2024-10-07 18:02 | XMS_ITS | Clinical Summary ---
Author Organization [employer] Address [address] [facility] [address] [place] [address] Care Team Providers Care Paperhanger Supervisor Name Role Phone Unavailable Primary Care Provider Unavailabl e Social History Tobacco Use Types Packs/Day Years Used Date Smoking Tobacco: Never Assessed Sex and Gender Information Value Date Recorded Sex Assigned at Male 03/15/2023 1:59 PM EDT Legal Sex Male 1:56 PM EDT Gender Identity Male 03/15/2023 1:59 PM EDT Sexual Orientation Straight 03/15/2023 1: 59 PM EDT Plan of Treatment Health Maintenance Due Date Last Done Comments CT Colonography 1953 Colonoscopy 1953 Colorectal Cancer Screening 1953 Depression Screening 1953 FIT DNA/Cologuard 1953 FIT 1953 FOBT 1953 Lipid Panel 1953 SDOH Screening 1953 Sigmoidoscopy 1953 Alcohol/Substance Use Screening 1965 Tobacco Screening 1965 Hepatitis C Screening 11/18/1971 Pneumococcal Vaccine: 50+ Ye ars (1 of 1 - PCV) 11/18/2003 Zoster Vaccines (1 of 2) 11/18/2003 COVID-19 Vaccine ( - 2023-2 5 season) 2024 Influenza Vaccine (#1) 2024 06/29/2023 RSV Patients and Pa tients Aged 60 years or older (1 - 1-dose 75+ series) 2028 DTaP/Tdap/Td Vaccines (2 - T d or Tdap) 06/29/2033 06/29/2023 HIB Vaccines Aged Out No longer eligi [...] patient's age to complete this topic Meningococcal Vaccine Aged Out No prabha raysa eligible based on patient's age to complete this topic RSV under 20 months Aged Out No longe r eligible based on patient's age to complete this topic Rotavirus Vaccines Aged Out No longer eligible based on patient's age to complete this topic Insurance [facility]
--- OUTSIDE RECORDS SUMMARY | 2024-10-07 18:02 | XMS_ITS | Encounter Summary ---
Author Organization [employer] Address [address] [facility] [address] [place] [address] Care Team Providers Care Chef De Cuisine Name Role Phone Unavailable Primary Care Provider Unavailabl e Reason for Visit * Reason Onset Date Comments New Patient 03/30/2023 Encounter Details Date Type Department Care Team (Late st Contact Info) Description 03/30/2023 Telephone [facility] MEDICINE [address] [place], [place] [phone] James Coombs MD [address] [place], [place] [phone] New Patient Social History Tobacco Use Types Packs/Day Years Used Date Smoking Tobacco: Never Assessed Sex and Gender Information Value Date Recorded Sex Assigned at Male 03/15/2023 1:59 PM EDT Legal Sex Male 1:56 PM EDT Gender Identity Male 03/15/2023 1:59 PM EDT Sexual Orientation Straight 03/15/2023 1: 59 PM EDT documented as of this encounter Miscellaneous Notes * Telephone Encounter - Tommie Blue - 03/30/2023 4:19 PM EDT Tc to pt, to Offer SUPPLY CHAIN DIRECTOR Appt, Pt answered, introduced myself and verify if pt was still interested inbecoming a pt with [facility] or [facility], pt was unsure but stated he would returned Phone call @ [phone]. documented in this encounter Plan of Treatment Not on file documented as of this encounter Visit Diagnoses Not on filedocumented in this encounter
--- OUTSIDE RECORDS SUMMARY | 2024-10-07 18:02 | XMS_ITS | Clinical Summary ---
Author Organization [facility] Address [address] [place] [address] Care Team Providers Care Protection Manager Name Role Phone Unavailable Primary Care Provider Unavailabl e Source Comments PLEASE NOTE, if this patient is a minor, it may be UNLAWFUL to discuss sensitive information that is contained in these records (such as FAMILY PLANNING, MENTAL HEALTH or SUBSTANCE ABUSE) with the minor patient's parent or other person without the patient's specific authorization.[facility] Allergies No known active allergies Medications pantoprazole (PROTONIX) 40 mg EC tablet Take 40 mg by mouth once daily Active Immunizations Immunization Administration Dates Next Due Flu, High Dose, 65y+, Fluzone High Dose 06/29/19 24 TDAP 06/29/2023 Family History Medical History Relation Name Comments Cancer Mother Relation Name Status Comments Father Mother Sister 1 Alive Sister 2 Alive Sister 3 Alive Sister 4 Alive Sister 5 Sister 6 Son Alive Social History Tobacco Use Types Packs/Day Years Used Date Smoking Tobacco: Former Cigarettes Smokeless Tobacco: Never Tobacco Cessation:Counseling Given: Not Answered Comments:Quit 10-15 years ago. Smoked for 50 years; one per day Alcohol Use Standard Drinks/Week Comments Not Currently 0 (1 standard drink = 0.6 oz pur e alcohol) Social Connections Answer Date Recorded Connectedness 0 03/10/2024 Financial Resource Strain Answer Date R ecorded Financial Resource Strain 0 2022 Stress Answer Date Recorded Stress 0 06/14/2023 Physical Activity Answer Date Recorded Physical Activity 0 06/14/2023 Food Insecurity Answer Date Recorded Food 0 03/21/2024 Transportation Needs Answer Date Record ed Transportation 0 06/14/2023 Housing Stability Answer Date Recorded Housing 0 06/14/2023 Safety and Environment Answer Date Keenan rded Safety 0 06/14/2023 Utilities Answer Date Recorded Utilities 0 06/14/2023 Employment Answer Date Recorded Stress 0 03/10/2024 Sex and Gender Information Value Date Recorded Sex Assigned at Male 06/29/2023 8:03 AM PST Legal Sex Male 10:54 AM PST Gender Identity Male 06/29/2023 8:03 AM PST Sexual Orientation Don't know 06/29/2023 8: 03 AM PST Last Filed Vital Signs Vital Sign Reading Time Taken Comments Blood Pressure 130/80 06/29/2023 10:18 AM EST Pulse 76 06/29/2023 10:18 AM EST Temperature 36.4 ??C (97.5 ??F) 06/29/2023 10:[address] Respiratory Rate 18 06/29/2023 10:18 AM EST Oxygen Saturation - - Inhaled Oxygen Concentration - - Weight 58.1 kg (128 lb) 06/29/2023 10:18 AM EST Height 167.6 cm (5' 6 ) 06/29/2023 10:18 AM EST Body Mass Index 20.66 06/29/2023 10:18 AM EST Plan of Treatment Health Maintenance Due Date Last Done Comments Diabetes Screening 1953 Hepatitis C Screening 1953 Lipid Screening [address] Colonography 1998 Colonoscopy 1998 Colorectal Cancer Screening 1998 FIT/gFOBT 1998 Fecal DNA 1998 Flexible Sigmoidoscopy 1998 Imm-Pneumococcal 65+ (1 of 1 - PCV) 11/18/2003 Abdominal Aortic Aneurysm Screening 2018 Falls Prevention 2018 [id number] ( season) 2024 04/16/2021, 09/24/2020, 09/03/2020 Imm-Influenza (#1) 2024 06/29/2023, 0 02/15/2022, 04/06/2021, Additional history exists Alcohol and Drug Screen 06/26/2024 06/29/2023 Depression Annual Screen 06/26/2024 Hypertension Screening (#1) 06/28/2024 Medicare Annual Wellness Visit 06/29/2024 06/29/2023 Imm-DTaP/Tdap/Td (2 - Td or Tdap) 06/29/2033 024, 03/04/2016 Imm-Zoster, Recombinant Completed 08/19/2022, 03/03 Insurance [facility] Member Subscriber Plan / Payer (Ef fective 2023-Present) Name:Myron Almaguer Sr. Relation to Subscriber:Self Name:Myron Almaguer Sr. Payer ID:[id number] Group ID:Not on file Type:Indemnity Address: [place] [address] [place] [id number]
== END ==
LOC: HO.HMCHD 15:38
PROVIDERS: PCP Internal Medicine; Visit Provider Internal Medicine
DX: N18.9 Chronic kidney disease, unspecified (principal); K21.9 Gastro-esophageal reflux disease without esophagitis; Z00.00 Encounter for general adult medical examination without abnormal findings

== ENCOUNTER → 2024-10-07 15:38 | Outpatient (BNVA) | payer MEDICARE, OTHER, SELFPAY | PROVIDERS: PCP Internal Medicine; Visit Provider Internal Medicine | DX: N18.9 Chronic kidney disease, unspecified (principal); K21.9 Gastro-esophageal reflux disease without esophagitis | CPT/HCPCS: 96127; 99202 ==

== ENCOUNTER 2025-04-11 06:28 | Outpatient (REF) | payer MEDICARE, OTHER, SELFPAY ==
--- OUTSIDE RECORDS SUMMARY | 2025-04-11 06:31 | XMS_ITS | Clinical Summary ---
Author Organization [employer] Address [address] [place] [address] Care Team Providers Care Parking Lot Laborer Name Role Phone Unavailable Primary Care Provider [...] COVID-19 Vaccine ( - 2023-2 5 season) 2025 Influenza Vaccine (#1) 2025 06/29/2023 RSV Patients and Pa tients Aged [...] patient's age to complete this topic Insurance [facility] < 65
--- OUTSIDE RECORDS SUMMARY | 2025-04-11 06:31 | XMS_ITS | Patient Health Record ---
Author Organization [facility] Address [address] [place] [address] Care Team Providers Care Distribution Dispatcher Name Role Phone Skye (RETIRED) Jah GUY Primary Care Provide r Bandar Bansal Unavailable [phone] Allergies Allergen (clinical drug ingredient) Drug/Non Drug Allergy documented on EMR Reaction Allergy Type Onset Date Status Latex latex (uncoded) Unknown Allergy Acti ve Reason For Referral No Information Medications Medication SIG (Take, Route, Fr equency, Duration) Notes Start Date End Date Status Pantoprazole Sodium 1 tablet Orally Once a day Active Immunizations Vaccine Route Administration Date Status Comme nts Influenza Unknown 03/26/2019 Administered Social History Tobacco Use: Social History Observation Description Date Details (start date - stop date) Never Smoker NA - NA Tobacco Use/Smoking Question Answer Notes Patient is a nonsmoker Alcohol Screen Question Answer Notes Did you have a drink containing alcohol in the p ast year? 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 screening colonoscopy in 09/2009 GERD-EGD in 09/2009-small HH and small ar ea of Haque's, no dysplasia Denies GA,DM,CVA,Lung disease,renal dise ase Has a history of wheezing Surgical History Surgery Date(Month/Year)
--- OUTSIDE RECORDS SUMMARY | 2025-04-11 06:32 | XMS_ITS | Clinical Summary ---
Author Organization [facility] Address [address] [place] [address] Care Team Providers Care Ammonia Box Operator Name Role Phone Unavailable Primary Care Provider [...] 11/18/2003 Zoster Vaccines (1 of 2) 11/18/2003 Depression Screening 06/26/2024 COVID-19 Vaccine (1 - 2023-2 5 season) 2025 Influenza Vaccine (#1) 2025 RSV Immunization Adult Patie nts (1 [...] Documents on File Type Date Recorded Patient Ecommerce Marketing Specialist Expl anation Health Care Decision (hx) 09/25/2019 AD WEST DIRECTIVE Health Care Decision (hx) 09/25/2019 AD WEST DIRECTIVE Health Care Decision (hx) 09/25/2019 AD WEST DIRECTIVE Health Care Decision (hx) 09/25/2019 AD WEST DIRECTIVE
--- OUTSIDE RECORDS SUMMARY | 2025-04-11 06:32 | XMS_ITS | Encounter Summary ---
Author Organization [employer] Address [address] [facility] 7t [place] [address] Care Team Providers Care Mcat Instructor Name Role Phone Unavailable Primary Care Provider Unavailabl e Reason for Visit * Reason Onset Date Comments New Patient 03/30/2023 Encounter Details Date Type Department Care Team (Late st Contact Info) Description 03/30/2023 Telephone [facility]ICINE [address] [place], [place] [phone] James Coombs MD [address] [place], [place] [phone] New Patient Social History Tobacco Use Types [...] PM EDT Tc to pt, to Offer ELECTRONIC CALIBRATION TECHNICIAN Appt, Pt answered, introduced myself and verify if pt was still interested inbecoming a pt with [facility] or [facility], pt was unsure but stated he would returned Phone call @ [phone]. documented in this encounter Plan of Treatment Not on file documented as of this encounter Visit Diagnoses Not on filedocumented in this encounter
--- OUTSIDE RECORDS SUMMARY | 2025-04-11 06:32 | XMS_ITS | Clinical Summary ---
Author Organization [facility] Address [address] [place] [address] Care Team Providers Care Order Caller Name Role Phone Unavailable Primary Care Provider [...] 76 06/29/2023 10:18 AM EST Temperature 36.4 C (97.5 F) 06/29/2023 10:18 AM EST Respiratory Rate 18 06/29/2023 10:18 AM EST Oxygen Saturation - - Inhaled Oxygen Concentration - - Weight 58.1 kg (128 lb) 06/29/2023 10:18 AM EST Height 167.6 cm (5' 6 ) 06/29/2023 10:18 AM EST Body Mass Index 20.66 06/29/2023 10:18 AM EST Plan of Treatment Health Maintenance Due Date Last Done Comments Hepatitis C Screening 1953 Lipid Screening 1953 Tobacco Screening 1953 Medicare Annual Wellness Visit 11/18/1971 CT Colonography 1998 Colonoscopy 1998 Colorectal Cancer Screening 1998 FIT/gFOBT 1998 Fecal DNA 1998 Flexible Sigmoidoscopy 1998 Imm-Pneumococcal 50+ (1 of 1 - PCV) 11/18/2003 Abdominal Aortic Aneurysm Screening 2018 Falls Prevention 2018 Alcohol and Drug Screen 06/26/2024 06/29/2023 Depression Annual Screen 06/26/2024 Hypertension Screening (#1) 06/28/2024 [id number] ( season) 2025 04/16/2021, 09/24/2020, 09/03/2020 Imm-Influenza (#1) 2025 06/29/2023, 0 02/15/2022, 04/06/2021, Additional history exists Imm-DTaP/Tdap/Td (2 - Td or Tdap) 06/29/2033 024, 03/04/2016 Imm-Zoster, Recombinant Completed 08/19/2022, 03/03 Insurance [facility]
[2025-04-11 07:24] LABS: Hematocrit 41.6 % (42.0-52.0); Hemoglobin 13.8 g/dl (14.0-18.0); Mean Corpuscular HGB Conc 33.2 g/dl (31.0-36.0); Mean Corpuscular Hemoglobin 30.4 pg (27.0-33.0); Mean Corpuscular Volume 91.6 fL (80.0-98.0); NRBC Abs Auto 0.000 X10*3/uL (0.0-0.012); NRBC Pct Auto 0.0 /100WBC (0.0-0.2); Platelet Count 228 X10*3/uL (160-400); Red Blood Count 4.54 X10*6/uL (4.60-5.80); White Blood Count 7.1 X10*3/uL (4.8-10.8)
[2025-04-11 07:50] LABS: Appearance Urine Clear; Glucose Urine UA Negative (Negative); PH 7.0 (5.0-9.0); Specific Gravity - Urine 1.015 (1.005-1.025)
[2025-04-11 07:59] LABS: Alanine Aminotransferase 19 U/L (0-40); Albumin Level 4.5 g/dL (3.5-5.0); Alkaline Phosphatase 56 U/L (39-117); Anion Gap 11 (12-20); Aspartate Amino Transferase 30 U/L (5-37); Blood Urea Nitrogen 17 mg/dL (9-16); Calcium 9.4 mg/dL (8.4-10.2); Carbon Dioxide 27 mmol/L (22-29); Chloride 108 mmol/L (96-108); Cholesterol 224 mg/dL (<200); Estimated Glomerular Filt Rate 50; HDL Cholesterol 67 mg/dL (>40); Potassium 5.2 mmol/L (3.3-5.1); Sodium 141 mmol/L (135-145); Total Protein 7.1 g/dL (6.5-8.0); Triglycerides 111 mg/dL (<150)
[2025-04-11 08:16] LABS: Thyroid Stimulating Hormone 4.14 uIU/mL (0.32-4.0)
== END 2025-04-11 06:29 | disposition home or self-care (01) ==
LOC: HO.LAB 06:28
PROVIDERS: PCP Internal Medicine; Visit Provider Internal Medicine
DX: N18.9 Chronic kidney disease, unspecified (principal)
CPT/HCPCS: 36415; 80048; 80061; 80076; 81003; 84443; 85027

== ENCOUNTER 2025-04-14 16:05 | Outpatient (AMB) | payer MEDICARE, MEDICAID, SELFPAY ==
--- NOTE | 2025-04-14 15:39 | MHC.PC.OV ---
Vital Signs 04/14/25 16:09 Height 3 ft 9.94 in Weight 57.606 kg BMI 42.3 BP 130/76 Blood Pressure Location Lt brachial Position Sitting Respiration 18 Pulse 67 Pulse Source Pulse Oximeter Temp 97.7 F Temp Source Temporal Artery Scan Pulse Oximetry (%) 98 Oxygen Delivery Method Room Air Intake Visit Reasons: 6 month f/u Gut Snatcher Required: No Accompanied by: son- Myron Dawkins Allergies latex (Latex) Allergy (Mild, Verified 04/14/25 15:40) RASH Tobacco use date assessed: 10/07/24 Dental Screening Dental Screen Date: 10/07/24 HPI HPI Comments History of Present Illness Details 69-year-old male with history of GERD, chronic kidney disease stage 3 presenting to the office today for management of chronic conditions and to establish care. Cyclic vomiting syndrome-had 2 hospitalizations at [facility] due to marijuana use. Reports he had significant nausea and vomiting for about 12 hours with observation overnight. Continue smoking marijuana multiple times per day. Has not attempted cessation. Does occasionally has nausea but no abdominal pain or vomiting. Reports using marijuana for emotional distress GERD-stable on pantoprazole CKD stage 3/hyperkalemia-last GFR 50, creatinine 1.41. Creatinine had improved to 1.27 at [facility] in October of 2024. Potassium also elevated at 5.2. Reports drinking at least 64 oz of water on a daily basis ROS: see hpi EXAM: Constitutional - Awake and Alert, No apparent distress Eyes - PERRL Cardiovascular - S1S2, RRR, No edema Respiratory - Normal lung expansion, Normal respiratory effort, No respiratory distress, CTA bilaterally Extremities - no calf tenderness bilaterally, no swelling Skin - Warm/Dry Neurological - Alert & oriented x3 Psychological - Appropriate affect [facility] Medical History (Updated 04/14/25 @ 17:27 by RANDELL Watters) Marijuana use, continuous Chronic kidney disease Hiatal hernia Barretts esophagus GERD (gastroesophageal reflux disease) Surgical History (Updated 04/04/25 @ 15:41 by Sharon Brown) History of esophagogastroduodenoscopy (EGD) Hx of colonoscopy (04/10/20) Family History Mother No problems noted. Father No problems noted. Social History Housing: House Alcohol intake: unknown Patient Tobacco Use Status: Never used Tobacco e-Cigarette/Vaping Use: Former Use Substance Use Type: Marijuana service: No Current occupational status: retired Cognitive needs: No Hearing needs: No Vision needs: No Questionnaire Thrive Questionnaire Date Thrive assessed: 10/07/24 FERNANDA-7 AMB Questionnaire FERNANDA-7 Date FERNANDA - 7 assessed: 10/07/24 Source: Developed by Drs. Bandar Rao, Amanda Jimenez, Omer Smith and colleagues, with an educational elpidio from [employer] Physical exam (Primary Care) Vital Signs: Last Vital Signs Temp 97.7 F 04/14/25 16:09 Pulse 67 04/14/25 16:09 Resp 18 04/14/25 16:09 BP 130/76 04/14/25 16:09 Pulse Ox 98 04/14/25 16:09 Oxygen Delivery Method Room Air 04/14/25 16:09 BMI result Body Mass Index 42.3 Tobacco/Smoking Status: Tobacco use Status Tobacco use date assessed 10/07/24 04/14/25 15:40 Patient Tobacco Use Status Never used Tobacco 04/14/25 15:40 e-Cigarette/Vaping Use Former Use 04/14/25 15:40 Thrive Assessment: Date of Thrive Assessment Date Thrive assessed 10/07/24 04/14/25 15:40 Coding Level of Care Code New Pt Level 4 (33385) Complex EM visit Add On G2211 Diagnoses Marijuana use, continuous F12.90 GERD (gastroesophageal reflux disease) K21.9 Chronic kidney disease N18.9 Assessment & Plan Assessment & Plan (1) Marijuana use, continuous: Code(s): F12.90 - Cannabis use, unspecified, uncomplicated Category: Medical Plan: Likely the cause of cyclic vomiting syndrome. Counseled again on cessation. Advised if he is going to continue to use, recommend textures or edibles. Uses this as stress management. Discussed SSRI or SNRI which he is not interested in. Recommend Ashwaganda trial (2) GERD (gastroesophageal reflux disease): Code(s): K21.9 - Gastro-esophageal reflux disease without esophagitis Category: Medical Plan: Stable. Continue pantoprazole. Avoid triggering foods (3) Chronic kidney disease: Code(s): N18.9 - Chronic kidney disease, unspecified Category: Medical Plan: Basic metabolic profile ordered to evaluate renal function as well as potassium levels. Counseled on increased hydration, limiting glucose and limiting sodium. Plan Follow-up in the office in 6 months. Labs to be completed today Orders: Orders Basic Metabolic Panel Today E87.5 - Hyperkalemia, N18.9 - Chronic kidney disease, unspecified Hemoglobin A1c Today R73.9 - Hyperglycemia, unspecified Patient Instructions: Kathleen
[2025-04-14 16:09] VITALS: BP 130/76; PULSE 67; RESP 18; TEMP 36.5; O2SAT 98; BMI 42.3
--- OUTSIDE RECORDS SUMMARY | 2025-04-14 20:24 | XMS_ITS | Patient Health Record ---
Author Organization [facility] Address [address] [place] [address] Care Team Providers Care Keg Inspector Name Role Phone Skye (RETIRED) Jah GUY Primary Care Provide r Bandar Bansal Unavailable [phone] Allergies Allergen (clinical drug ingredient) Drug/Non Drug [...] Problem Screening for malignant neoplasm of colon (729983680) Encounter for screening for malignant neoplasm of colon (Z12.11) Active confirmed Problem Gastroesophageal reflux disease without esophagitis (854368754) Gastroesophageal reflux disease without esophagitis (K21.9) Active confirmed Problem Haque's esophagus (292023124) 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 screening colonoscopy in 09/2009 GERD-EGD in 09/2009-small HH and small ar ea of Haque's, no dysplasia Denies NC,DM,CVA,Lung disease,renal dise ase Has a history of wheezing Surgical History Surgery Date(Month/Year)
--- OUTSIDE RECORDS SUMMARY | 2025-04-14 20:24 | XMS_ITS | Encounter Summary ---
Author Organization [employer] Address [address] [facility] [address] [place] [address] Care Team Providers Care Suction Roller Name Role Phone Unavailable Primary Care Provider Unavailabl e Reason for Visit * Reason Onset Date Comments New Patient 03/30/2023 Encounter Details Date Type Department Care Team (Late st Contact Info) Description 03/30/2023 Telephone [facility] MEDICINE [address] [place], [place] [phone] James Coombs MD [address] [place], [place] [phone] New Patient Social History Tobacco Use Types [...] PM EDT Tc to pt, to Offer BOWL SANDER Appt, Pt answered, introduced myself and verify if pt was still interested inbecoming a pt with [facility] or [facility], pt was unsure but stated he would returned Phone call @ [phone]. documented in this encounter Plan of Treatment Not on file documented as of this encounter Visit Diagnoses Not on filedocumented in this encounter
--- OUTSIDE RECORDS SUMMARY | 2025-04-14 20:24 | XMS_ITS | Clinical Summary ---
Author Organization [employer] Address [address] [facility] [address] [place] [address] Care Team Providers Care Group Account Director Name Role Phone Unavailable Primary Care Provider [...] patient's age to complete this topic Insurance [facility] < 65
== END 2025-04-14 16:34 | disposition home or self-care (01) ==
PROVIDERS: PCP Physician Assistant; Visit Provider Physician Assistant
DX: F12.90 Cannabis use, unspecified, uncomplicated (principal); K21.9 Gastro-esophageal reflux disease without esophagitis; N18.9 Chronic kidney disease, unspecified

== ENCOUNTER 2025-04-14 16:05 | Outpatient (REF) | payer MEDICARE, OTHER, MEDICAID, SELFPAY ==
[2025-04-14 18:27] LABS: Anion Gap 13 (12-20); Blood Urea Nitrogen 17 mg/dL (9-16); Calcium 9.2 mg/dL (8.4-10.2); Carbon Dioxide 27 mmol/L (22-29); Chloride 106 mmol/L (96-108); Estimated Glomerular Filt Rate 45; Potassium 4.6 mmol/L (3.3-5.1); Sodium 141 mmol/L (135-145)
== END 2025-04-14 16:06 | disposition home or self-care (01) ==
LOC: HO.LAB 16:05
PROVIDERS: PCP Internal Medicine; Visit Provider Physician Assistant
DX: E87.5 Hyperkalemia (principal); R73.9 Hyperglycemia, unspecified; N18.9 Chronic kidney disease, unspecified; F12.90 Cannabis use, unspecified, uncomplicated; K21.9 Gastro-esophageal reflux disease without esophagitis
CPT/HCPCS: 36415; 80048; 83036; 99202